=== PATIENT | male | born 1995 | race Two or more races ===

== ENCOUNTER 2020-03-22 01:26 | Emergency (ER) | payer OTHER ==
[~2020-03-22] VITALS: Ht 177.8 cm; Wt 63.5 kg
[2020-03-22 01:26] VITALS: BP 153/93
== END 2020-03-22 02:15 ==
LOC: ER 01:29
DX: M25.522 Pain in left elbow (principal); W19.XXXA Unspecified fall, initial encounter; Y93.89 Activity, other specified; Y92.89 Other specified places as the place of occurrence of the external cause; Y99.8 Other external cause status
CPT/HCPCS: 73080-TC